=== PATIENT | male | born 1975 | race Caucasian/White ===

== ENCOUNTER 2018-02-27 18:54 | Inpatient (IN) | payer OTHER ==
[~2018-02-27] VITALS: Ht 172.7 cm; Wt 94.4 kg
[2018-02-27 19:17] LABS: BASO % 0.3 % (0.0-2.0); EOS % 0.3 % (0-4.0); GRAN # 7.5 (1.4-6.5); GRAN % 64.4 % (42.2-75.2); HEMATOCRIT 42.4 % (42.0-52.0); HEMOGLOBIN 15.1 g/dl (13.5-18.0); LYMPH # 2.7 (1.2-3.4); LYMPH % 23.1 % (20.0-51.0); MEAN CELL VOLUME 93 fl (80.0-100.0); MEAN CORPUSCULAR HEMOGLOBIN 33 pg (27.0-31.0); MEAN CORPUSCULAR HGB CONC 36 g/dl (33.0-37.0); MEAN PLATELET VOLUME 9.4 fl (7.4-10.4); MONO # 1.2 (0.1-0.6); MONO % 10.4 % (1.7-9.3); PLATELET COUNT 270 K/mm3 (130-400); RED BLOOD COUNT 4.57 M/mm3 (4.20-5.60); REDCELL DISTRIBUTION WIDTH-CV 11.9 % (11.5-14.5)
[2018-02-27 19:22] LABS: PROTHROMBIN TIME 11.9 SECONDS (9.7-12.8)
[2018-02-27 19:28] LABS: BILIRUBIN,TOTAL 0.6 mg/dL (0.0-1.0); CALCIUM 9.1 mg/dL (8.4-10.2); CREATININE, serum 1.24 mg/dL (0.66-1.25); POTASSIUM 3.5 mmol/L (3.4-5.0); TOTAL PROTEIN 7.2 gm/dL (6.4-8.2)
[2018-02-27] MEDS ORDERED: MOBIC15 MG PO (21:58)
[2018-02-27] MEDS ORDERED: MELATONIN3 M1 PO (22:00)
[2018-02-27] MEDS ORDERED: DESYREL 50MG50 MG PO (22:06)
[2018-02-28] VITALS (12 sets, daily range): BP systolic 116–150; BP diastolic 58–89; PULSE 58–75; TEMP 97.2–99.1
[2018-02-28] MEDS ORDERED: LEXAPRO20 MG PO (01:29)
[2018-02-28] MEDS ORDERED: VITAMIN D31000 I1 PO (01:30)
[2018-02-28] MEDS ORDERED: FISH OIL 500 M1 EAC1 PO (01:30)
[2018-02-28 07:37] LABS: BASO % 0.1 % (0.0-2.0); GRAN # 6.1 (1.4-6.5); GRAN % 69.9 % (42.2-75.2); LYMPH # 1.4 (1.2-3.4); LYMPH % 15.6 % (20.0-51.0); MEAN CELL VOLUME 95 fl (80.0-100.0); MEAN CORPUSCULAR HGB CONC 35 g/dl (33.0-37.0); MEAN PLATELET VOLUME 9.5 fl (7.4-10.4); MONO # 1.2 (0.1-0.6); MONO % 13.7 % (1.7-9.3); PLATELET COUNT 197 K/mm3 (130-400); RED BLOOD COUNT 3.72 M/mm3 (4.20-5.60); REDCELL DISTRIBUTION WIDTH-CV 12.1 % (11.5-14.5)
[2018-02-28 07:38] LABS: ALBUMIN 3.3 gm/dL (3.5-5.0); CALCIUM 7.8 mg/dL (8.4-10.2); CREATININE, serum 1.04 mg/dL (0.66-1.25); POTASSIUM 4.3 mmol/L (3.4-5.0); TOTAL PROTEIN 6.1 gm/dL (6.4-8.2)
[2018-02-28 07:40] LABS: HEMATOCRIT 35.4 % (42.0-52.0); HEMOGLOBIN 12.4 g/dl (13.5-18.0); MEAN CORPUSCULAR HEMOGLOBIN 33 pg (27.0-31.0)
[2018-03-01 03:46] VITALS: BP 113/63; PULSE 69; TEMP 98.3
[2018-03-01 07:39] LABS: HEMOGLOBIN 11.1 g/dl (13.5-18.0)
[2018-03-01 07:43] LABS: HEMATOCRIT 31.6 % (42.0-52.0)
[2018-03-01 07:48] VITALS: BP 106/67; PULSE 73; TEMP 97.6
[2018-03-01 12:01] VITALS: BP 130/59; PULSE 83; TEMP 97.7
[2018-03-01 15:41] VITALS: BP 103/58; PULSE 75; TEMP 98.3
[2018-03-01 19:06] VITALS: BP 114/57; PULSE 82; TEMP 98.2
[2018-03-02] VITALS: BP 108/58; PULSE 82; TEMP 98.4
[2018-03-02 04:14] VITALS: BP 125/69; PULSE 71; TEMP 98.4
[2018-03-02] MEDS ORDERED: ASPI325T6 PO (07:08)
[2018-03-02] MEDS ORDERED: ROXICODONE 55 MG/TAB PO (07:15)
[2018-03-02] MEDS ORDERED: NORCO 325 MG-7.1 TAB PO (07:15)
== END 2018-03-02 11:50 | disposition home or self-care (01) | DRG 493 ==
LOC: COL.ER 18:54 → SURG 21:56
PROVIDERS: Emergency Medicine; Orthopaedic Surgery; Surgery
PROC: 0HQ5XZZ Repair Chest Skin, External Approach (ICD-10-PCS; 2018-02-28)
PROC: 0HQBXZZ Repair Right Upper Arm Skin, External Approach (ICD-10-PCS; 2018-02-28)
PROC: 0PSH04Z Reposition Right Radius with Internal Fixation Device, Open Approach (ICD-10-PCS; principal; 2018-02-28 13:00)
PROC: 0QSH04Z Reposition Left Tibia with Internal Fixation Device, Open Approach (ICD-10-PCS; 2018-02-28 13:00)
PROC: 0QSK04Z Reposition Left Fibula with Internal Fixation Device, Open Approach (ICD-10-PCS; 2018-02-28 13:00)
PROC: 0LQ80ZZ Repair Left Hand Tendon, Open Approach (ICD-10-PCS; 2018-02-28 13:00)
DX: S52.501A Unspecified fracture of the lower end of right radius, initial encounter for closed fracture (principal); S06.9X9A Unspecified intracranial injury with loss of consciousness of unspecified duration, initial encounter; S66.325A Laceration of extensor muscle, fascia and tendon of left ring finger at wrist and hand level, initial encounter; S82.842A Displaced bimalleolar fracture of left lower leg, initial encounter for closed fracture; S05.12XA Contusion of eyeball and orbital tissues, left eye, initial encounter; S52.601A Unspecified fracture of lower end of right ulna, initial encounter for closed fracture; S30.0XXA Contusion of lower back and pelvis, initial encounter; F10.10 Alcohol abuse, uncomplicated; V23.4XXA Motorcycle driver injured in collision with car, pick-up truck or van in traffic accident, initial encounter; R40.2413 Glasgow coma scale score 13-15, at hospital admission; I10 Essential (primary) hypertension; Y92.410 Unspecified street and highway as the place of occurrence of the external cause
CPT/HCPCS: A9284; C1713; G0378; J0690; J1100; J1170; J1885; J1940; J2250; J2270; J2405; J2704; J2765; J3010; J7030; J7120; Q4021; Q4045